=== PATIENT | female | born 1940 | race Caucasian/White ===

== ENCOUNTER 2020-10-27 15:09 | Day surgery (SDCO) | payer OTHER, SELFPAY ==
[~2020-10-27] VITALS: Ht 157.5 cm; Wt 68.6 kg
[~2020-10-27 15:09] MED LIST: COUMADIN2 MG PO; COZAAR50 MG PO; HYTRIN1 MG PO; K-DUR20 MEQ PO; KEPPRA500 MG PO; LASIX20 MG PO; LOPRESSOR50 MG PO; SYNTHROID50 MCG PO; ZOCOR40 MG PO
[2020-10-27 17:26] LABS: BASOPHIL 0.5 % (0-2); EOSINOPHIL 1.4 % (0-7); HCT 43.6 % (37.0-47.0); HGB 14.7 g/dl (12.5-16.0); LYMPHOCYTE 22.3 % (15-48); MCH 31.3 pg (25.0-31.0); MCHC 33.7 g/dL (32.0-36.0); MCV 92.8 fL (78.0-100.0); MONOCYTE 6.4 % (0-12); MPV 11.1 fL (6.0-9.5); NEUTROPHIL 69.2 % (41-80); NRBC 0; PLT 277 K/uL (150-400); WBC 8.9 K/uL (4.0-10.5)
[2020-10-27 17:36] LABS: INR 3.5 (0.9-1.2); PROTHROMBIN TIME 33.5 SECONDS (11.4-13.6); PTT 44.4 SECONDS (22.2-34.7)
[2020-10-27 17:40] LABS: ALBUMIN 3.4 g/dL (3.4-5.0); BILIRUBIN - TOTAL 0.9 mg/dL (0.2-1.0); BUN/CREAT RATIO (CALC) 12.7 RATIO; CREATININE 0.79 mg/dL (0.51-0.95); GLOBULIN (CALCULATION) 4.1 g/dL; TOTAL PROTEIN 7.5 g/dL (6.4-8.2)
[2020-10-27 17:46] LABS: BILIRUBIN NEGATIVE (NEGATIVE); BLOOD NEGATIVE Ery/uL (NEGATIVE); CLARITY CLEAR (CLEAR); COLOR YELLOW (YELLOW); GLUCOSE (U) NORMAL (NORMAL); LEUKOCYTES 1+ Leu/uL (NEGATIVE); NITRITE NEGATIVE (NEGATIVE); PROTEIN NEGATIVE (NEGATIVE); SPECIFIC GRAVITY 1.015 (1.001-1.030); UROBILINOGEN 0.2 mg/dL (0.2-1.0)
[2020-10-27 17:47] LABS: POTASSIUM 2.3 mmol/L (3.5-5.1); PRO-BNP 942 pg/mL (<450)
[2020-10-27 17:56] LABS: BACTERIA TRACE; SQUAMOUS EPITHELIAL CELLS RARE
[2020-10-27 21:28] LABS: BUN/CREAT RATIO (CALC) 11.7 RATIO; CREATININE 0.77 mg/dL (0.51-0.95); POTASSIUM 2.6 mmol/L (3.5-5.1)
[2020-10-27] MEDS ORDERED: WARFARIN SODIUM3 MG PO (21:33)
[2020-10-27] MEDS ORDERED: MORPHINE 15MG E15 MG PO (21:33)
[2020-10-27] MEDS ORDERED: OXYCODONE-ACET1 EAC1 PO (21:35)
[2020-10-27] MEDS ORDERED: APRESOLINE100 MG PO (21:36)
[2020-10-27] MEDS ORDERED: PROCHLORPERAZIN10 M1 PO (21:38)
[2020-10-28 03:03] LABS: INR 4.09 (0.9-1.2); PROTHROMBIN TIME 37.9 SECONDS (11.4-13.6)
[2020-10-28 03:09] LABS: BASOPHIL 0.5 % (0-2); BUN/CREAT RATIO (CALC) 11.4 RATIO; CREATININE 0.7 mg/dL (0.51-0.95); EOSINOPHIL 0.7 % (0-7); HCT 35.8 % (37.0-47.0); HGB 11.9 g/dl (12.5-16.0); LYMPHOCYTE 18.2 % (15-48); MCH 31.3 pg (25.0-31.0); MCHC 33.2 g/dL (32.0-36.0); MCV 94.2 fL (78.0-100.0); MONOCYTE 8.3 % (0-12); MPV 11.3 fL (6.0-9.5); NEUTROPHIL 71.2 % (41-80); NRBC 0; PLT 219 K/uL (150-400); POTASSIUM 2.7 mmol/L (3.5-5.1); RDW 14.2 % (11.5-14.0); WBC 8.1 K/uL (4.0-10.5)
[2020-10-28 03:11] LABS: MAGNESIUM 1.6 mg/dL (1.8-2.4)
[2020-10-28 15:54] LABS: CREATININE 0.69 mg/dL (0.51-0.95)
[2020-10-29 06:06] LABS: BASOPHIL 0.4 % (0-2); EOSINOPHIL 3.5 % (0-7); HCT 35.1 % (37.0-47.0); HGB 11.5 g/dl (12.5-16.0); LYMPHOCYTE 16.7 % (15-48); MCH 31.3 pg (25.0-31.0); MCHC 32.8 g/dL (32.0-36.0); MCV 95.6 fL (78.0-100.0); MONOCYTE 7.3 % (0-12); MPV 11.6 fL (6.0-9.5); NEUTROPHIL 71.8 % (41-80); NRBC 0; PLT 205 K/uL (150-400); RBC 3.67 M/uL (4.20-5.40); RDW 14.1 % (11.5-14.0); WBC 6.9 K/uL (4.0-10.5)
[2020-10-29 06:24] LABS: INR 3.35 (0.9-1.2); PROTHROMBIN TIME 32.4 SECONDS (11.4-13.6)
[2020-10-29 06:37] LABS: BUN/CREAT RATIO (CALC) 12.5 RATIO; CREATININE 0.56 mg/dL (0.51-0.95); POTASSIUM 2.7 mmol/L (3.5-5.1)
[2020-10-29] MEDS ORDERED: K-DUR20 MEQ PO (17:07)
== END 2020-10-29 18:20 | disposition home or self-care (01) ==
LOC: FER 15:09 → FMS 19:50
PROVIDERS: Emergency Medicine; Internal Medicine; ADMIT Hospitalist
DX: E87.6 Hypokalemia (principal); K52.9 Noninfective gastroenteritis and colitis, unspecified; E03.9 Hypothyroidism, unspecified; E78.5 Hyperlipidemia, unspecified; E87.8 Other disorders of electrolyte and fluid balance, not elsewhere classified; E11.9 Type 2 diabetes mellitus without complications; I48.91 Unspecified atrial fibrillation; G40.909 Epilepsy, unspecified, not intractable, without status epilepticus; G35 Multiple sclerosis; D64.9 Anemia, unspecified; F41.1 Generalized anxiety disorder; I10 Essential (primary) hypertension; R91.8 Other nonspecific abnormal finding of lung field; Z92.3 Personal history of irradiation; Z79.01 Long term (current) use of anticoagulants; Z88.8 Allergy status to other drugs, medicaments and biological substances; Z98.890 Other specified postprocedural states; Z90.710 Acquired absence of both cervix and uterus; Z85.038 Personal history of other malignant neoplasm of large intestine; Z90.49 Acquired absence of other specified parts of digestive tract; Z20.822 Contact with and (suspected) exposure to COVID-19; Z82.49 Family history of ischemic heart disease and other diseases of the circulatory system
CPT/HCPCS: 36415; 36600; 71275; 80048; 80053; 81001; 82803; 83605; 83735; 83880; 84132; 84484; 85025; 85610; 85730; 87040; 87088; 93005; 94010; G0378; J1170; J2543; J3475; J3480; J7030; U0002

== ENCOUNTER → 2020-11-26 | Day surgery (SDC) | payer OTHER, SELFPAY ==
[~2020-11-26] VITALS: Ht 157.5 cm; Wt 63.5 kg
[~2020-11-26] MED LIST changes: +APRESOLINE100 MG PO; +MORPHINE 15MG E15 MG PO; +MORPHINE S100 MG/5 M PO; +OXYCODONE-ACET1 EAC1 PO; +PROCHLORPERAZIN10 M1 PO; +WARFARIN SODIUM3 MG PO; +ZOFRAN4 M1 PO
[2020-11-26 07:51] LABS: HCT 44.3 % (37.0-47.0); HGB 15.1 g/dl (12.5-16.0); MCH 32.5 pg (25.0-31.0); MCHC 34.1 g/dL (32.0-36.0); MCV 95.5 fL (78.0-100.0); RBC 4.64 M/uL (4.20-5.40); RDW 13.4 % (11.5-14.0); WBC 11.1 K/uL (4.0-10.5)
[2020-11-26 08:02] LABS: INR 1.05 (0.9-1.2)
[2020-11-26 08:25] LABS: ALBUMIN 3.3 g/dL (3.4-5.0); BILIRUBIN - TOTAL 1.1 mg/dL (0.2-1.0); BUN/CREAT RATIO (CALC) 17.6 RATIO; CREATININE 1.42 mg/dL (0.51-0.95); GLOBULIN (CALCULATION) 4.2 g/dL; POTASSIUM 3.9 mmol/L (3.5-5.1); TOTAL PROTEIN 7.5 g/dL (6.4-8.2)
== END | disposition home or self-care (01) ==
LOC: FAS 06:32
PROVIDERS: Student in an Organized Health Care Education/Training Program
DX: C18.9 Malignant neoplasm of colon, unspecified (principal); C78.00 Secondary malignant neoplasm of unspecified lung; C79.51 Secondary malignant neoplasm of bone; E11.9 Type 2 diabetes mellitus without complications; I48.91 Unspecified atrial fibrillation; K52.9 Noninfective gastroenteritis and colitis, unspecified; M10.9 Gout, unspecified; E78.00 Pure hypercholesterolemia, unspecified; I10 Essential (primary) hypertension; E03.9 Hypothyroidism, unspecified; G35 Multiple sclerosis; D50.0 Iron deficiency anemia secondary to blood loss (chronic); K44.9 Diaphragmatic hernia without obstruction or gangrene; G40.909 Epilepsy, unspecified, not intractable, without status epilepticus; E66.9 Obesity, unspecified; Z68.30 Body mass index [BMI] 30.0-30.9, adult; Z79.01 Long term (current) use of anticoagulants; Z79.899 Other long term (current) drug therapy; Z88.8 Allergy status to other drugs, medicaments and biological substances
CPT/HCPCS: 36415; 71045; 76000; 80053; 85610; 85730; C1788; J0690; J1644; J2001; J7120

== ENCOUNTER 2020-12-03 09:33 | Inpatient (IN) | payer OTHER, SELFPAY ==
[~2020-12-03 09:33] MED LIST changes: -MORPHINE S100 MG/5 M PO; -ZOFRAN4 M1 PO
[2020-12-03 10:30] LABS: BASOPHIL 0.1 % (0-2); EOSINOPHIL 0 % (0-7); HCT 42.8 % (37.0-47.0); LYMPHOCYTE 7.6 % (15-48); MCH 32.1 pg (25.0-31.0); MCV 91.6 fL (78.0-100.0); MONOCYTE 2.2 % (0-12); MPV 11.7 fL (6.0-9.5); NEUTROPHIL 89.7 % (41-80); NRBC 0; PLT 230 K/uL (150-400); RBC 4.67 M/uL (4.20-5.40); RDW 12.8 % (11.5-14.0)
[2020-12-03 10:50] LABS: ALBUMIN 3.1 g/dL (3.4-5.0); BILIRUBIN - TOTAL 1.2 mg/dL (0.2-1.0); BUN/CREAT RATIO (CALC) 28.9 RATIO; CREATININE 0.76 mg/dL (0.51-0.95); GLOBULIN (CALCULATION) 3.8 g/dL; POTASSIUM 3.3 mmol/L (3.5-5.1); TOTAL PROTEIN 6.9 g/dL (6.4-8.2)
[2020-12-03 11:00] LABS: LACTIC ACID 2.3 mmol/L (0.4-1.9)
[2020-12-03 13:23] LABS: BILIRUBIN NEGATIVE (NEGATIVE); BLOOD NEGATIVE Ery/uL (NEGATIVE); CLARITY CLEAR (CLEAR); COLOR YELLOW (YELLOW); GLUCOSE (U) NORMAL (NORMAL); LEUKOCYTES NEGATIVE Leu/uL (NEGATIVE); NITRITE NEGATIVE (NEGATIVE); PROTEIN TRACE (LOW) mg/dL (NEGATIVE); UROBILINOGEN 0.2 mg/dL (0.2-1.0)
[2020-12-03 13:31] LABS: AMORPHOUS URATES CRYSTALS MODERATE; BACTERIA TRACE
[2020-12-03 17:07] LABS: CORONAVIRUS 2019 SARS-COV-2 NEGATIVE (NEGATIVE); INFLUENZA A NAA NEGATIVE (NEGATIVE)
[2020-12-03 20:05] LABS: BASOPHIL 0.1 % (0-2); EOSINOPHIL 0 % (0-7); HCT 39.6 % (37.0-47.0); HGB 13.7 g/dl (12.5-16.0); LYMPHOCYTE 3.9 % (15-48); MCH 31.9 pg (25.0-31.0); MCHC 34.6 g/dL (32.0-36.0); MCV 92.3 fL (78.0-100.0); MONOCYTE 1.5 % (0-12); MPV 11.4 fL (6.0-9.5); NEUTROPHIL 94.1 % (41-80); NRBC 0; PLT 184 K/uL (150-400); RBC 4.29 M/uL (4.20-5.40); RDW 12.9 % (11.5-14.0); WBC 14.1 K/uL (4.0-10.5)
[2020-12-03 20:16] LABS: INR 3.47 (0.9-1.2); PROTHROMBIN TIME 33.3 SECONDS (11.4-13.6); PTT 32.4 SECONDS (22.2-34.7)
[2020-12-03 20:27] LABS: ALBUMIN 2.9 g/dL (3.4-5.0); BILIRUBIN - TOTAL 1.2 mg/dL (0.2-1.0); BUN/CREAT RATIO (CALC) 26.3 RATIO; CREATININE 0.76 mg/dL (0.51-0.95); GLOBULIN (CALCULATION) 3.4 g/dL; MAGNESIUM 1.1 mg/dL (1.8-2.4); POTASSIUM 3.2 mmol/L (3.5-5.1); TOTAL PROTEIN 6.3 g/dL (6.4-8.2)
[2020-12-04 06:00] LABS: BASOPHIL 0.1 % (0-2); EOSINOPHIL 0.2 % (0-7); HCT 39.4 % (37.0-47.0); HGB 13.6 g/dl (12.5-16.0); LYMPHOCYTE 7.7 % (15-48); MCH 32.2 pg (25.0-31.0); MCHC 34.5 g/dL (32.0-36.0); MCV 93.1 fL (78.0-100.0); MONOCYTE 2.1 % (0-12); MPV 11.9 fL (6.0-9.5); NEUTROPHIL 89.5 % (41-80); NRBC 0; PLT 183 K/uL (150-400); RBC 4.23 M/uL (4.20-5.40); WBC 15.9 K/uL (4.0-10.5)
[2020-12-04 06:18] LABS: ALBUMIN 2.9 g/dL (3.4-5.0); BILIRUBIN - TOTAL 1.2 mg/dL (0.2-1.0); BUN/CREAT RATIO (CALC) 25.3 RATIO; CREATININE 0.75 mg/dL (0.51-0.95); MAGNESIUM 1.2 mg/dL (1.8-2.4); PHOSPHORUS 2.3 mg/dL (2.6-4.7); TOTAL PROTEIN 5.9 g/dL (6.4-8.2)
--- NOTE | 2020-12-04 11:00 | NUR ---
12/04/20 Please consder full admit or discharge. Thank You!
[2020-12-05 06:10] LABS: INR 2.82 (0.9-1.2); PROTHROMBIN TIME 28.3 SECONDS (11.4-13.6)
[2020-12-05 06:25] LABS: BASOPHIL 0.1 % (0-2); EOSINOPHIL 0 % (0-7); HCT 39.7 % (37.0-47.0); HGB 13.4 g/dl (12.5-16.0); LYMPHOCYTE 4.5 % (15-48); MCH 31.8 pg (25.0-31.0); MCHC 33.8 g/dL (32.0-36.0); MCV 94.3 fL (78.0-100.0); MPV 12.7 fL (6.0-9.5); NEUTROPHIL 93.7 % (41-80); NRBC 0; PLT 158 K/uL (150-400); RBC 4.21 M/uL (4.20-5.40); RDW 13.2 % (11.5-14.0); WBC 21.2 K/uL (4.0-10.5)
[2020-12-05 06:55] LABS: ALBUMIN 2.6 g/dL (3.4-5.0); ALKALINE PHOSHATASE 55 U/L (46-116); ALT 19 U/L (14-59); AST 26 U/L (15-37); BILIRUBIN - TOTAL 1.3 mg/dL (0.2-1.0); BUN 18 mg/dL (7-18); BUN/CREAT RATIO (CALC) 27.3 RATIO; CHLORIDE 105 mmol/L (98-107); CO2 (BICARBONATE) 25 mmol/L (21-32); CREATININE 0.66 mg/dL (0.51-0.95); FOLIC ACID (SERUM) >100.0 ng/mL (8.6-58.9); GLOBULIN (CALCULATION) 3.4 g/dL; GLUCOSE 187 mg/dL (74-106)
[2020-12-05 07:01] LABS: MAGNESIUM 2.4 mg/dL (1.8-2.4)
--- NOTE | 2020-12-05 10:31 | NUR ---
1015 P ARRIVED TO TCU VIA BED, C/O NAUSEA AND PAIN IN KNEE AT THIS TIME, ASSESSMENT COMPLETED. PT INCONT, CARE PREFORMED AT THIS TIME AND IS COMFORTABLE IN BED, SIDE RAIL X2 AND CALL BEE IN REACH.
[2020-12-05 11:49] LABS: BASOPHIL 0.2 % (0-2); EOSINOPHIL 0.1 % (0-7); HCT 38.1 % (37.0-47.0); HGB 12.9 g/dl (12.5-16.0); LYMPHOCYTE 4.3 % (15-48); MCH 31.9 pg (25.0-31.0); MCHC 33.9 g/dL (32.0-36.0); MCV 94.3 fL (78.0-100.0); MONOCYTE 0.9 % (0-12); MPV 12.5 fL (6.0-9.5); NEUTROPHIL 93.6 % (41-80); NRBC 0.1; PLT 145 K/uL (150-400); RBC 4.04 M/uL (4.20-5.40); RDW 13.1 % (11.5-14.0)
[2020-12-05 11:52] LABS: WBC 19.9 K/uL (4.0-10.5)
[2020-12-05 12:00] LABS: BUN/CREAT RATIO (CALC) 27.1 RATIO; CREATININE 0.7 mg/dL (0.51-0.95)
[2020-12-05 12:07] LABS: TOTAL CELL COUNT 100
[2020-12-05 12:09] LABS: LYMPHOCYTE(M) 5 % (15-48); NEUTROPHILS(M) 95 % (41-80); PLATELET ESTIMATE NORMAL; PLATELET MORPHOLOGY NORMAL
[2020-12-06 05:31] LABS: BASOPHIL 0.2 % (0-2); EOSINOPHIL 0.1 % (0-7); HCT 37.2 % (37.0-47.0); HGB 12.5 g/dl (12.5-16.0); MCH 32.6 pg (25.0-31.0); MCHC 33.6 g/dL (32.0-36.0); MCV 96.9 fL (78.0-100.0); MONOCYTE 1.1 % (0-12); MPV 12.7 fL (6.0-9.5); NEUTROPHIL 91.8 % (41-80); NRBC 0; PLT 117 K/uL (150-400); RBC 3.84 M/uL (4.20-5.40); RDW 13.3 % (11.5-14.0); WBC 15.6 K/uL (4.0-10.5)
[2020-12-06 05:40] LABS: INR 1.52 (0.9-1.2); PROTHROMBIN TIME 17.4 SECONDS (11.4-13.6)
[2020-12-06 05:55] LABS: ALBUMIN 2.3 g/dL (3.4-5.0); BILIRUBIN - TOTAL 1.3 mg/dL (0.2-1.0); BUN/CREAT RATIO (CALC) 29.7 RATIO; CREATININE 0.74 mg/dL (0.51-0.95); GLOBULIN (CALCULATION) 3.4 g/dL; PHOSPHORUS 2.9 mg/dL (2.6-4.7); POTASSIUM 4.7 mmol/L (3.5-5.1); TOTAL PROTEIN 5.7 g/dL (6.4-8.2)
--- NOTE | 2020-12-06 15:18 | NUR ---
12/06/20 Ms. Canchola lives at home with her spouse. She is followed by HH, although the family doesn't know which agency. She has a rollator, rw, and wc. Teresa Callejas, daughter, POA, ([phone]) wishes for a referral to be made to Hospice. They are not interested in NH placement. Ms. Callejas plans to meet with this social insurance administrator today to further discuss Hospice services. - Discharge is anticipated for 12/07/[address] Lorenzo.
[2020-12-07 03:49] LABS: HCT 34.9 % (37.0-47.0); HGB 11.5 g/dl (12.5-16.0); MCV 97.2 fL (78.0-100.0); MPV 12.4 fL (6.0-9.5); RBC 3.59 M/uL (4.20-5.40); RDW 13.2 % (11.5-14.0); WBC 16.8 K/uL (4.0-10.5)
[2020-12-07 04:05] LABS: CREATININE 0.7 mg/dL (0.51-0.95); POTASSIUM 4.6 mmol/L (3.5-5.1)
--- NOTE | 2020-12-07 10:23 | NUR ---
12/07/20 Discharge options were discussed in a meeting with Teresa Callejas, daughter / POA and Balbir Canchola, son / POA. Family chose [facility]osp[facility] services. Hospice has accepted and discharge is planned for today. [facility] will tansport home at 3:00. Ms. Callejas will bring Ms. Canchola's wc and ride with her on the transport home. - Hospice has ordered a hospital bed. Family was advised to call Hospice when they arrive home. - A report was given to TREMAINE Pham RN.
[2020-12-07] MEDS ORDERED: ZOFRAN4 M1 PO (10:37)
[2020-12-07] MEDS ORDERED: MORPHINE S100 MG/5 M PO (10:37)
== END 2020-12-07 14:00 | disposition hospice, home (50) | DRG 280 ==
LOC: FER 09:33 → FMS 15:06 → FTCU 12-05 09:12
PROVIDERS: Emergency Medicine; Hospitalist; Internal Medicine Cardiovascular Disease; ADMIT Internal Medicine
DX: I11.0 Hypertensive heart disease with heart failure (principal); I21.4 Non-ST elevation (NSTEMI) myocardial infarction; I50.21 Acute systolic (congestive) heart failure; K91.2 Postsurgical malabsorption, not elsewhere classified; C78.00 Secondary malignant neoplasm of unspecified lung; C79.51 Secondary malignant neoplasm of bone; I48.20 Chronic atrial fibrillation, unspecified; E44.1 Mild protein-calorie malnutrition; I42.9 Cardiomyopathy, unspecified; E87.6 Hypokalemia; Z66 Do not resuscitate; Z51.5 Encounter for palliative care; Z20.822 Contact with and (suspected) exposure to COVID-19; I35.0 Nonrheumatic aortic (valve) stenosis; I48.91 Unspecified atrial fibrillation; E03.9 Hypothyroidism, unspecified; E11.9 Type 2 diabetes mellitus without complications; G40.909 Epilepsy, unspecified, not intractable, without status epilepticus; I44.7 Left bundle-branch block, unspecified; Z92.21 Personal history of antineoplastic chemotherapy; Z85.038 Personal history of other malignant neoplasm of large intestine; Z90.49 Acquired absence of other specified parts of digestive tract; Z90.710 Acquired absence of both cervix and uterus; Z98.890 Other specified postprocedural states; Z79.01 Long term (current) use of anticoagulants; Z79.899 Other long term (current) drug therapy; Z88.8 Allergy status to other drugs, medicaments and biological substances
CPT/HCPCS: 36415; 71045; 71260; 80048; 80053; 80202; 81001; 82746; 82962; 83605; 83735; 83880; 84100; 84145; 84484; 85025; 85610; 85730; 87040; 87070; 87088; 87205; 93005; 94010; 97163; 97530-GP; C9113; J0360; J0743; J1170; J1642; J1650; J1940; J1953; J2185; J2270; J2405; J2543; J2550; J3370; J3411; J3475; J3480; J7030; J7040; J7050; J7120; Q9967; U0002